=== PATIENT | female | born 1980 ===

== ENCOUNTER 2018-08-09 18:50 | Emergency (ER) | payer SELFPAY ==
--- NOTE | 2018-08-09 18:56 | EDPHY ---
H & P Time Seen by Provider: 08/09/18 18:56 HPI/ROS: Chief complaint. Unresponsive HPI. Patient is a 37-year-old female who was on a train from [place] to [place] and the conductor found the patient to be unresponsive. Took 5-10 minutes to wake her up. EMS was called and they met the train and took the patient off a train brought her to the emergency department. Patient tells me she has been drinking alcohol in doing edibles. She denies other drugs. She was on the train to visit mother and like to be back on she tells me she is not sick. She denies injuries. She denies suicide ideation or trying to harm herself. No chest pain or shortness of breath. No abdominal pain. ROS 10 systems were reviewed and negative with the exception of the elements mentioned in the history of present illness Past Medical/Surgical History: Tubal ligation Social History: Unknown marital status, unknown smoking. Recent alcohol Physical Exam: General Appearance: Arousable well-developed female mild distress. Vital signs are stable Eyes: Pupils equal and round no pallor or injection. ENT, Mouth: Mucous membranes are moist. Respiratory: There are no retractions, lungs are clear to auscultation. Cardiovascular: Regular rate and rhythm. Gastrointestinal: Abdomen is soft and nontender, no masses, bowel sounds normal. Neurological: Awake and alert, sensory and motor exams grossly normal. Skin: Warm and dry, no rashes. Musculoskeletal: Neck is supple nontender. Extremities symmetrical, full range of motion. Psychiatric: Patient is oriented X 3, there is no agitation. Evidence of intoxication Constitutional: Initial Vital Signs Temperature (C) 36.2 C 08/09/18 18:57 Heart Rate 96 08/09/18 18:57 Respiratory Rate 16 08/09/18 18:57 Blood Pressure 122/72 H 08/09/18 18:57 O2 Sat (%) 96 08/09/18 18:57 O2 Delivery Mode Room Air Allergies/Adverse Reactions: No Known Allergies Allergy (Unverified 08/09/18 19:00) Home Medications: Medication Instructions Recorded NK [No Known Home Meds] 08/09/18 Medical Decision Making Procedures: IV normal saline, monitor ED Course/Re-evaluation: Recheck at 5:55 p.m.. Patient is awake and responsive. We will road test the patient Serial evaluations patient remains stable. Differential Diagnosis: This appears to be polysubstance abuse. Patient admits to doing edibles and drinking alcohol. No evidence for acute injury or medical problems Care Turn Over: Dr. Strong at 11 pm - Data Points Laboratory Results: Laboratory Results 08/09/18 19:17 08/09/18 19:17 08/09/18 08/09/18 08/09/18 19:17 19:17 19:17 WBC 10.08 10^3/uL H 10^3/uL (3.80-9.50) RBC 4.90 10^6/uL 10^6/uL (4.18-5.33) Hgb 13.7 g/dL g/dL (12.6-16.3) Hct 42.4 % % (38.0-47.0) MCV 86.5 fL fL (81.5-99.8) MCH 28.0 pg pg (27.9-34.1) MCHC 32.3 g/dL L g/dL (32.4-36.7) RDW 13.3 % % (11.5-15.2) Plt Count 363 10^3/uL 10^3/uL (150-400) MPV 8.5 fL L fL (8.7-11.7) Neut % (Auto) 40.7 % % (39.3-74.2) Lymph % (Auto) 47.8 % H % (15.0-45.0) Stanton % (Auto) 7.0 % % (4.5-13.0) Eos % (Auto) 3.6 % % (0.6-7.6) Baso % (Auto) 0.6 % % (0.3-1.7) Nucleat RBC Rel Count 0.0 % % (0.0-0.2) Absolute Neuts (auto) 4.10 10^3/uL 10^3/uL (1.70-6.50) Absolute Lymphs (auto) 4.82 10^3/uL H 10^3/uL (1.00-3.00) Absolute Monos (auto) 0.71 10^3/uL 10^3/uL (0.30-0.80) Absolute Eos (auto) 0.36 10^3/uL 10^3/uL (0.03-0.40) Absolute Basos (auto) 0.06 10^3/uL 10^3/uL (0.02-0.10) Absolute Nucleated RBC 0.00 10^3/uL 10^3/uL (0-0.01) Immature Gran % 0.3 % % (0.0-1.1) Immature Gran # 0.03 10^3/uL 10^3/uL (0.00-0.10) Sodium 143 mEq/L mEq/L (135-145) Potassium 4.1 mEq/L mEq/L (3.5-5.2) Chloride 109 mEq/L mEq/L (97-110) Carbon Dioxide 24 mEq/l mEq/l (22-31) Anion Gap 10 mEq/L mEq/L (6-14) BUN 10 mg/dL mg/dL (7-23) Creatinine 0.7 mg/dL mg/dL (0.6-1.0) Estimated GFR > 60 Glucose 88 mg/dL mg/dL (70-100) Calcium 8.9 mg/dL mg/dL (8.5-10.4) Beta HCG, Qual NEGATIVE Acetaminophen < 10 mcg/mL L mcg/mL (10-30) Ethyl Alcohol 271 mg/dL H mg/dL (0-10) Medications Given: Discontinued Medications Sodium Chloride (Ns) 1,000 mls @ 0 mls/hr IV EDNOW ONE; Wide Open PRN Reason: Protocol Stop: 08/09/18 20:34 Last Admin: 08/09/18 20:36 Dose: 1,000 mls Departure - Departure Disposition: Home, Routine, Self-Care Clinical Impression: Alcohol intoxication Qualifiers: Complication of substance-induced condition: uncomplicated Qualified Code(s): F10.920 - Alcohol use, unspecified with intoxication, uncomplicated Condition: Good Instructions: Alcohol Intoxication (ED) Additional Instructions: No further alcohol or edibles tonight Return for worsening symptoms Referrals: Patient,NotPresent [Primary Care Provider] - As per Instructions
[2018-08-09 19:23] LABS: PLATELET COUNT 363 10^3/uL (150-400)
[2018-08-09] MEDS ORDERED: NS 1,000 ML IV ONE (20:33)
[2018-08-09 23:34] VITALS: BP 106/50
== END 2018-08-10 00:04 | disposition home or self-care (01) ==
DX: F10.920 Alcohol use, unspecified with intoxication, uncomplicated (principal); E86.9 Volume depletion, unspecified
CPT/HCPCS: G0480